=== PATIENT | female | born 1975 | race African-American/Black ===

== ENCOUNTER 2019-06-10 20:59 | Inpatient (IN) | payer OTHER ==
[2019-06-10 22:04] VITALS: BMI 33.7
[2019-06-10] MEDS ORDERED: Ondansetron ODT 4 MG TAB PO PRN (22:30)
[2019-06-10] MEDS ORDERED: Calcium Carbonate 500 MG ChewTAB PO PRN (22:30)
[2019-06-10 23:39] LABS: Phosphorus 2.2 mg/dL (2.3-4.7)
[2019-06-10 23:47] LABS: ALT (SGPT) 29 U/L (8-55); AST (SGOT) 43 U/L (5-34); Albumin 3.3 g/dL (3.5-5.0); Alkaline Phosphatase 162 U/L (40-110); Anion Gap 12 mmol/L (10-20); BUN (Urea Nitrogen) Less than 4 mg/dL (7.0-18.7); Bilirubin, Total 0.5 mg/dL (0.2-1.2); Calc. Creatinine Clearance 126 mL/min (70-130); Calcium 9.2 mg/dL (7.8-10.44); Carbon Dioxide 25 mmol/L (22-29); Chloride 105 mmol/L (98-107); Estimated GFR-MDRD Greater than 90; Globulin 3.8 g/dL (2.4-3.5); Glucose 85 mg/dL (70-105); Magnesium 1.5 mg/dL (1.6-2.6); Potassium 3.6 mmol/L (3.5-5.1); Protein, Total 7.1 g/dL (6.0-8.3); Sodium 138 mmol/L (136-145)
[2019-06-10 23:53] LABS: Band 2 % (5-11); Eosinophils 2 % (0-10); Hemoglobin 9.9 g/dL (12.0-16.0); Lymphocytes 15 % (21-51); MDiff Complete? YES; Mean Corpuscular HGB CONC 34.2 g/dL (32.0-36.0); Mean Corpuscular Hemoglobin 29.1 pg (27.0-31.0); Mean Corpuscular Volume 85.1 fL (78.0-98.0); Mean Platelet Volume 7.8 fL (7.4-10.4); Monocytes 3 % (0-10); Neutrophil 77 % (42-75); Platelet Count 382 thou/uL (130-400); RBC Distribution Width 19.9 % (11.5-14.5); Red Blood Cell (RBC) Count 3.39 mill/uL (4.20-5.40); White Blood Cell (WBC) Count 10.3 thou/uL (4.8-10.8)
[2019-06-11] MEDS: Melatonin 3 MG TAB PO PRN ×2 (00:26→20:30)
[2019-06-11] MEDS ORDERED: Dexamethasone 1 MG TAB PO SCH (00:45)
--- NOTE | 2019-06-11 01:06 | PDOC.FPRHP ---
- History of Present Illness Chief Complaint: Hypertensive Urgency History of Present Illness: 44yo AAF with h/o Anxiety/Depression, HTN, Sickle cell trait who presented as direct admit for HTN urgency. Pt was recently admitted to [facility] for sepsis 2/2 UTI and discharged today. Pt then called her PCP and was found to have BP of 203/123 and complaining of ANDERSON and thus admitted for HTN urgency and workup of secondary HTN. PT states she has had elevated BP for about the past 9 months, uncontrolled with multiple BP medications. Pt states that her BP gets as low as 140s and then as high as 170s. When BP is elevated she has associated ANDERSON's. She also endorses chronic anxiety, tremors, and blurred vision. She also has had nausea and vomiting for past 3 days with any PO intake. Also states she has had low potassium over past few months. She has seen Dr. Og twice for elevated BP and started on Potassium 20meq daily. She also endorses 48lb weight gain for past 1 year, without significant diet changes. ALso endorses new 2-3cm hyperpigmented lesions on body, nonpuritic. PCP: Mau ED Course: Direct Admit - Allergies/Adverse Reactions Allergies Allergy/AdvReac Type Severity Reaction Status Date / Time citalopram [From Celexa] Allergy Verified 06/10/19 22:01 codeine Allergy Verified 06/10/19 22:01 Iodine and Iodide Containing Allergy Verified 06/10/19 22:01 Produc Penicillins Allergy Verified 06/10/19 22:01 - Home Medications Medication Instructions Recorded Confirmed Type Amlodipine [Norvasc] 10 mg PO DAILY 06/11/19 06/11/19 History Cephalexin [Keflex] 500 mg PO Q12H 06/11/19 06/11/19 History Ferrous Sulfate [Feosol] 325 mg PO DAILY 06/11/19 06/11/19 History Hydrochlorothiazide 25 mg PO QAM 06/11/19 06/11/19 History Losartan Potassium 100 mg PO DAILY 06/11/19 06/11/19 History Metoclopramide HCl [Reglan] 5 mg PO QID 06/11/19 06/11/19 History Pantoprazole [Protonix] 40 mg PO DAILY 06/11/19 06/11/19 History Sertraline HCl [Zoloft] 100 mg PO DAILY 06/11/19 06/11/19 History Sucralfate [Carafate] 1 gm PO QID 06/11/19 06/11/19 History buPROPion HCl [Wellbutrin XL] 300 mg PO QAM 06/11/19 06/11/19 History cloNIDine [Catapres] 0.2 mg PO QID PRN 06/11/19 06/11/19 History hydrALAZINE HCl [Hydralazine HCl] 25 mg PO TID 06/11/19 06/11/19 History traZODone HCl [Trazodone HCl] 100 mg PO HS 06/11/19 06/11/19 History - History PMHx:Anxiety, depression, HTN, Anemia, Sickle cell trait, gallstones PSHx: C/s x3, unilateral salpingoophorectomy for ectopic, tubal ligation FHx: Dad and mom with HTN. Dad with ESRD 2/2 HTN, Mom breast cancer, aunt with hypothyroidism, mom with ESRD 2/2 HTN. No known family history of GI malignancies, thyroid malagnancies. Social: Lives at home with 3 children. Former 26PY smoker, quit 3 weeks ago. Social drinker. No illicits. - Review of Systems General: reports: weight/appetite/sleep changes (48lb weight gain over past year ). denies: fever/chills, night sweats, fatigue Eyes: reports: vision changes (chronic blurred vision) ENT: denies: nasal congestion, rhinorrhea Respiratory: denies: cough, congestion, shortness of breath Cardiovascular: denies: chest pain, palpitation, edema Gastrointestinal: reports: nausea, vomiting. denies: diarrhea, constipation, abdominal pain Genitourinary: denies: incontinence, dysuria, polyuria Skin: reports: rashes (per HPI) Neurological: reports: other (resting tremor) Psychological: reports: anxiety - Vital signs BP: 145/99 HR: 110 RR: 16 Tmax: 98 Pox: 98.3% on RA Wt: 83kg - Physical Exam Constitutional: NAD, awake, alert and oriented, well developed HEENT: PERRLA, EOMI, no scleral icterus, grossly normal vision, grossly normal hearing, MMM, oropharynx clear Neck: supple, trachea midline, no LAD Heart: RRR, normal S1/S2, no murmurs/rubs/gallops, pulses present, no edema Lungs: CTAB, no respiratory distress, good air movement, no rales/rhonchi, no wheezing Abdomen: soft, non-tender, bowel sounds present, no masses/distention Neurological: no focal deficit, normal sensation, other (resting tremor) Skin: other (2-3cm hyperpigmented lesions on upper and lower ext, mild scaly, no erythema, non TTP) Heme/Lymphatic: no unusual bruising or bleeding Psychiatric: normal mood and affect, good judgment and insight, other (anxious) FMR H&P: Results - Labs Result Diagrams: 06/11/19 04:56 06/11/19 04:56 Lab results: WBC 10.3 thou/uL (4.8-10.8) 06/10/19 23:09 Hgb 9.9 g/dL (12.0-16.0) L 06/10/19 23:09 Hct 28.9 % (36.0-47.0) L 06/10/19 23:09 MCV 85.1 fL (78.0-98.0) 06/10/19 23:09 Plt Count 382 thou/uL (130-400) 06/10/19 23:09 Band Neuts % (Manual) 2 % (5-11) L 06/10/19 23:09 Sodium 138 mmol/L (136-145) 06/10/19 23:09 Potassium 3.6 mmol/L (3.5-5.1) 06/10/19 23:09 Chloride 105 mmol/L (98-107) 06/10/19 23:09 Carbon Dioxide 25 mmol/L (22-29) 06/10/19 23:09 BUN Less than 4 mg/dL (7.0-18.7) L 06/10/19 23:09 Creatinine 0.77 mg/dL (0.6-1.1) 06/10/19 23:09 Glucose 85 mg/dL (70-105) 06/10/19 23:09 Calcium 9.2 mg/dL (7.8-10.44) 06/10/19 23:09 Total Bilirubin 0.5 mg/dL (0.2-1.2) 06/10/19 23:09 AST 43 U/L (5-34) H 06/10/19 23:09 ALT 29 U/L (8-55) 06/10/19 23:09 Alkaline Phosphatase 162 U/L (40-110) H 06/10/19 23:09 Serum Total Protein 7.1 g/dL (6.0-8.3) 06/10/19 23:09 Albumin 3.3 g/dL (3.5-5.0) L 06/10/19 23:09 - Radiology Interpretation CT scan - abdomen Status: image reviewed by me (The official read was not with the scan on the disc. There appeared to be some sort of mass in the L. kidney. No other abnormalities noted. will try and obtain official reports) Additional comment: CT scan from [facility] stay. US - abdomen Status: image reviewed by me, report reviewed by me (Pt had disc of US from [facility]. It showed gallstones but no wall thickening no inflammation) Additional comment: US scan form [facility]. On CD. Was reviewed. FMR H&P: A/P - Problem List (1) Hypertensive urgency Current Visit: Yes Status: Acute Code(s): I16.0 - HYPERTENSIVE URGENCY (2) Anxiety Current Visit: Yes Status: Acute Code(s): F41.9 - ANXIETY DISORDER, UNSPECIFIED (3) Anemia Current Visit: Yes Status: Acute Code(s): D64.9 - ANEMIA, UNSPECIFIED - Plan 44yo AAF with h/o Anxiety/Depression, HTN, Sickle cell trait who presented as direct admit for HTN urgency and resistant HTN. #HTN Urgency - SBP 203 prior to arrival with associated ANDERSON. No severe elevated BP since arrival - H/o resistant per PCP, history of 1 year of weight gain, has present tremor, having issues of hypokalemia and been having HTN despite multiple BP meds - Concern for Cushings - will order dexamethasone suppresion test with AM cortisol and 24hr Urine cortisol - Concern for Pheo - will obtain plasma metanephrines and catecholamines and 24hr Urine meta/catech - Concern for Primary Hyperaldosteronism - will obtain AM Renin/Aldosterone - Will monitor BP closely - Recently on Adderall 30mg BID, but has been off for past 3 weeks - On Clonidine QID prn, could contribute to rebound HTN, will hold and recommend d/c - Will hold ARB and HCTZ as well as SSRI and Wellbutrin as can affect workup labs for secondary htn - Will continue Norvasc and hydralazine - CT abdomen reviewed from [facility], mass on left kidney, will provide to our radiologist for overreed - Renal US with Doppler to assess for renal artery stenosis - Check CBC and TSH - will obtain BP on both arms and orthostatics to eval for coarctation #Anxiety/Depression - Will hold SSRI, Trazadone, and Wellbutrin at this time as can affect secondary HTN labs, will restart after workup complete - could be 2/2 underlying pathology such as Pheo #Gallstones - Recently found on Abd US at [facility] - will obtain CMP - will monitor, no s/s of acute cholecystis - will need OP f/u #Sickle Cell trait and Anemia - will check CBC PCP: Mau VTE: None, low risk Diet: HH Low sodium IVF: SL Code: Full Disposition/LOS: Admit to medical obs for HTN urgency. Secondary HTN workup. Anticipate hospitalization <48 hours. FMR H&P: Upper Level - Pertinent history I was present with the commercial intern during the HPI. I agree with the above HPI. I made edits as needed above. - Pertinent findings Pt resting in bed. Pt appears to be in no acute distress. Pt pulse tachy. BP mildly elevated. HEENT: Pt has somewhat do facies appearing. No buffalo hump noted. Has hyperpigmented spots on all extremities. Ext: When pt held arms out straight noted to have tremor. Pt reported to be due to her anxiety. Abdomen: Pelaez sign positive on palpation of RUQ area. Some rebound noted - Plan Date/Time: 06/11/19 0041 I, Joby Weir, PGY3, have evaluated this patient and agree with findings/ plan as outlined by commercial intern resident. Pertinent changes/additions are listed here. See above for detailed plan. I made edits as needed. At this time pt admitted for HTN urgency with headaches. No sign of organ dysfunction. Concern for secondary HTN. Pt has multiple symptoms, hypokalemia and findings on physical exam that concern us possible underlying 2/2 htn. Will evaluate for hyperaldosteronism, pheochromocytoma, carmita's, and renal artery stenosis. See above for detailed workup plan. Addendum - Attending - Attending Attestation Date/Time: 06/10/19 6511 I personally evaluated the patient and discussed the management with Dr. Reyna. I agree with the History, Examination, Assessment and Plan documented above with any addition or exceptions noted below. The patient was admitted for hypertensive urgency. BP has been fluctuating, tachycardia has also been fluctuating. Will perform workup of secondary causes.
[2019-06-11 01:10] LABS: Bacteria/HPF None Seen HPF (None Seen); Bilirubin Negative (Negative); Blood, Urine Negative (Negative); Clarity Clear (Clear); Glucose, Urine (Dipstick) Normal (Negative); Leukocyte Negative Leu/uL (Negative); Nitrite Negative (Negative); Protein, Urine (Dipstick) Negative (Neg-Trace); RBC/HPF 0-3 HPF (0-3); Squamous Epithelial 0-3 HPF (0-3); Urobilinogen Normal mg/dL (Less than 2); WBC/HPF 0-3 HPF (0-3)
[2019-06-11 05:57] LABS: ALT (SGPT) 26 U/L (8-55); AST (SGOT) 39 U/L (5-34); Albumin 3.1 g/dL (3.5-5.0); Alkaline Phosphatase 151 U/L (40-110); Anion Gap 11 mmol/L (10-20); BUN (Urea Nitrogen) Less than 4 mg/dL (7.0-18.7); Bilirubin, Total 0.6 mg/dL (0.2-1.2); Calc. Creatinine Clearance 138 mL/min (70-130); Calcium 9.2 mg/dL (7.8-10.44); Carbon Dioxide 25 mmol/L (22-29); Chloride 105 mmol/L (98-107); Estimated GFR-MDRD Greater than 90; Globulin 3.7 g/dL (2.4-3.5); Glucose 86 mg/dL (70-105); Potassium 3.6 mmol/L (3.5-5.1); Protein, Total 6.8 g/dL (6.0-8.3); Sodium 137 mmol/L (136-145)
[2019-06-11 06:44] LABS: Anisocytosis SLIGHT = 6-15 cells (100X) (0-5/hpf); Band 1 % (5-11); Hemoglobin 9.6 g/dL (12.0-16.0); Lymphocytes 14 % (21-51); MDiff Complete? YES; Mean Corpuscular HGB CONC 34.3 g/dL (32.0-36.0); Mean Corpuscular Hemoglobin 29.1 pg (27.0-31.0); Mean Corpuscular Volume 84.8 fL (78.0-98.0); Mean Platelet Volume 7.8 fL (7.4-10.4); Monocytes 4 % (0-10); Neutrophil 81 % (42-75); Platelet Count 370 thou/uL (130-400); RBC Distribution Width 19.7 % (11.5-14.5); Red Blood Cell (RBC) Count 3.29 mill/uL (4.20-5.40); Target Cells SLIGHT = 2-5 cells (100X) (0-1/hpf); White Blood Cell (WBC) Count 12.5 thou/uL (4.8-10.8)
[2019-06-11] MEDS ORDERED: FLU VACC QS2019-20(6MOS UP)/PF 60 MCG/0.5 ML SYRINGE IM ONE (09:00)
[2019-06-11] MEDS: Ferrous Sulfate 325 MG TAB PO SCH (09:13)
[2019-06-11] MEDS: Amlodipine 10 MG TAB PO SCH (09:14)
[2019-06-11] MEDS: Cephalexin 250 MG CAP PO SCH ×2 (09:14→20:29)
[2019-06-11] MEDS: hydrALAZINE 25 MG TAB PO SCH ×3 (09:14→20:29)
--- NOTE | 2019-06-11 09:14 | PDOC.FM ---
- Subjective Subjective: NADEEM overnight. Pt doingwell. No headche, cp,sob. - Objective Vital Signs & Weight: Vital Signs (12 hours) Temp Pulse Resp BP BP BP BP 06/11/19 04:17 98.1 F 105 H 16 06/11/19 00:21 98.0 F 87 16 146/98 H 06/10/19 22:30 153/103 H 154/102 H 150/99 H 06/10/19 21:30 98.3 F 110 H 16 145/99 H BP Pulse Ox 06/11/19 04:17 147/92 H 98 06/11/19 00:21 98 06/10/19 22:30 139/104 H 06/10/19 21:30 98 Weight Weight 83.716 kg I&O: 06/10/19 06/11/19 06/12/19 06:59 06:59 06:59 Intake Total 200 Output Total 700 Balance -500 Result Diagrams: 06/11/19 04:56 06/11/19 04:56 Phys Exam - Physical Examination Constitutional: NAD HEENT: moist MMs, sclera anicteric Neck: no nodes Respiratory: no wheezing, no rales, no rhonchi Cardiovascular: RRR, no significant murmur, no rub Gastrointestinal: soft, no distention Musculoskeletal: no edema, pulses present Neurological: non-focal, moves all 4 limbs Psychiatric: normal affect Skin: no rash Dx/Plan (1) Anemia Code(s): D64.9 - ANEMIA, UNSPECIFIED Status: Acute (2) Anxiety Code(s): F41.9 - ANXIETY DISORDER, UNSPECIFIED Status: Acute (3) Hypertensive urgency Code(s): I16.0 - HYPERTENSIVE URGENCY Status: Acute - Plan Plan: #HTN Urgency - labs wnl and 2ndary htn studies pending - if BP remains stable salomón curran for dc to home tomorrow after collection of labs complete. #Anxiety/Depression - resume medications after lab studies complete #Sickle Cell trait and Anemia - CBC stable, asymptomatic PCP: Mau VTE: None, low risk Diet: HH Low sodium IVF: SL Code: Full Disposition/LOS: Stable, cont secondary htn workup. DC after labs collected. Addendum - Attending - Attending Attestation Date/Time: 06/11/191817 I personally evaluated the patient and discussed the management with Dr. Gonzales. I agree with the History, Examination, Assessment and Plan documented above with any addition or exceptions noted below. The patient is feeling ok. Her bp this morning is improved. Getting 24 hour urine. Cortisol level pending.
--- NOTE | 2019-06-11 10:00 | ULT ---
EXAM: US Renal Bilateral with Doppler PROVIDED CLINICAL HISTORY: Hypertension COMPARISON: CT 05/02/2019 FINDINGS: Right kidney measures about 11.8 x 4.9 x 4.8 cm and demonstrates no evidence for hydronephrosis or so lid mass. Simple appearing cysts are seen. Left kidney measures about 11.6 x 6 x 5.3 cm and demonstrates no evidence for hydronephrosis. The son ographer questions a solid mass within the left kidney, however no evidence for such was seen on the recent CT examination. Urinary bladder is decompressed and not well evaluated. Color Doppler and spectral analysis of the aortic and renal waveforms was performed. Renal artery to aorta peak systolic velocity ratio is 0.81 on the right and 0.66 on the left. Resistive indices within the arcuate systems are normal bilaterally. IMPRESSION: 1. No evidence for hydronephrosis. 2. No sonographic evidence for a hemodynamically significant renal artery stenosis.
[2019-06-11] MEDS: Ondansetron PF 4 MG/2 ML Vial IVP PRN ×2 (12:27→18:07)
[2019-06-11] MEDS: Acetaminophen 325 MG TAB PO PRN (20:29)
[2019-06-12] MEDS ORDERED: traZODone HCl 50 MG TAB PO SCH ×2 (01:00→21:00)
--- NOTE | 2019-06-12 07:40 | PDOC.FM ---
- Subjective Subjective: Pt reports feeling better, no ANDERSON since yesterday. She does report some intermittent post prandial nausea and vomiting x4 days. Nurse reports two episodes of vomiting yesterday. Pt reports she is only symptomatic after eating a large meal. Small meals tolerated well. - Objective Vital Signs & Weight: Vital Signs (12 hours) Temp Pulse Resp BP BP Pulse Ox 06/12/19 04:02 97.9 F 110 H 18 153/99 H 98 06/12/19 00:00 98.0 F 106 H 16 134/87 98 06/11/19 20:29 110 H 167/105 H Weight Admit Weight 83.461 kg Weight 83.716 kg I&O: 06/11/19 06/12/19 06/13/19 06:59 06:59 06:59 Intake Total 200 879 Output Total 700 1200 Balance -500 -321 Result Diagrams: 06/11/19 04:56 06/11/19 04:56 Phys Exam - Physical Examination Constitutional: NAD HEENT: moist MMs, sclera anicteric Neck: supple, full ROM Respiratory: no wheezing, clear to auscultation bilateral Cardiovascular: RRR, no significant murmur Gastrointestinal: soft, positive bowel sounds Musculoskeletal: no edema, pulses present Neurological: normal sensation, moves all 4 limbs Psychiatric: normal affect, A&O x 3 Skin: no rash, normal turgor Dx/Plan (1) Hypertensive urgency Code(s): I16.0 - HYPERTENSIVE URGENCY Status: Acute (2) Anemia Code(s): D64.9 - ANEMIA, UNSPECIFIED Status: Acute (3) Anxiety Code(s): F41.9 - ANXIETY DISORDER, UNSPECIFIED Status: Acute - Plan Plan: HTN Urgency A- labs wnl so far. Many studies still pending P- Continue amlodipine -dc to home today likely Gall stones A- seen on recent US. Pt is mildy symptomatic with nausea with large meals. Otherwise no s/s of cholecystitis P- f/u outpt -zofran prn Anxiety/Depression - resume medications on DC Sickle Cell trait and Anemia - CBC stable, asymptomatic PCP: Mau VTE: None, low risk Diet: HH Low sodium IVF: SL Code: Full Disposition/LOS: likely DC today Addendum - Attending - Attending Attestation Date/Time: 06/12/19 2100 I personally evaluated the patient and discussed the management with Dr. Cheema. I agree with the History, Examination, Assessment and Plan documented above with any addition or exceptions noted below. The patient is stable. BP is elevated but overall better than initial. She has completed 24 hour urine and results are pending and can take up to a week to result. Pt notes eating small amounts controls her nausea. No abdominal tenderness noted this morning. Pt wants to go home. Dr. Cheema will update pcp.
[2019-06-12] MEDS: Cephalexin 250 MG CAP PO SCH (08:51)
[2019-06-12] MEDS: Amlodipine 10 MG TAB PO SCH (08:54)
[2019-06-12] MEDS: Ferrous Sulfate 325 MG TAB PO SCH (08:55)
[2019-06-12] MEDS: hydrALAZINE 25 MG TAB PO SCH ×2 (08:55→14:44)
[2019-06-12] MEDS ORDERED: Fluconazole 100 MG TAB PO SCH (09:00)
--- NOTE | 2019-06-12 10:40 | DIS ---
DATE OF ADMISSION: 06/10/2019 DATE OF DISCHARGE: 06/12/2019 ADMITTING ATTENDING: Corinne Toledo MD DISCHARGE ATTENDING: Corinne Toledo MD RESIDENT: Ruddy Cheema MD CONSULTS: None. DISCHARGE MEDICATIONS: 1. Clonidine 0.2 mg p.o. q.i.d. p.r.n. for systolic blood pressure over 180. 2. Wellbutrin 300 mg p.o. q.a.m. 3. Sertraline 100 mg p.o. daily. 4. Ferrous sulfate 325 mg p.o. daily. 5. Protonix 40 mg p.o. daily. 6. Reglan 5 mg p.o. q.i.d. 7. Keflex 500 mg p.o. q.12 hours. Complete antibiotic course resumed at home. 8. Trazodone 100 mg p.o. at bedtime. 9. Zofran 4 mg p.o. q.6 hours p.r.n. 10. Amlodipine 10 mg p.o. daily. 11. Hydralazine 25 mg p.o. t.i.d. DISCONTINUED MEDICATIONS: 1. Hydrochlorothiazide 25 mg p.o. q.a.m. 2. Losartan 100 mg p.o. daily. IMAGING REPORTS: Renal ultrasound on 06/11/2019. Impression; no evidence for hydronephrosis. No sonographic evidence for hemodynamically significant renal artery stenosis. PRIMARY DIAGNOSIS: Hypertensive urgency. SECONDARY DIAGNOSES: Hypertension, gallstones, depression, sickle cell trait, and anemia. HISTORY OF PRESENT ILLNESS/HOSPITAL COURSE: This is a 44-year-old female, who is transferred from [facility] for further workup of her hypertensive urgency. The patient was placed on 10 mg of amlodipine in addition to her home dosage of hydralazine and blood pressures responded well. Workup of her hypertensive urgency and resistant hypertension was initiated in hospital stay including renal ultrasound and vast laboratory workup including cortisol, dexamethasone suppression test, urine cortisol, plasma metanephrines, urine metanephrines, morning renin and aldosterone, and these labs will be followed up at a later date. Otherwise, the patient's hospitalization was somewhat significant for nausea. It was found that the patient had history of gallstones. She did not have positive Pelaez sign and was not febrile, and so the patient did not show signs of cholecystitis. Nausea was relieved by eating small meals and taking Zofran as needed, and so the patient was discharged home to follow up with PCP. DISPOSITION: Stable. DISCHARGE INSTRUCTIONS: 1. Location: Home. 2. Activity: As tolerated. 3. Diet: Low-salt, heart-healthy diet. 4. Followup: Follow up with Dr. León in 3 days. Job ID: [id number]
[2019-06-12 13:13] VITALS: TEMP 98.1
[2019-06-12] MEDS: Acetaminophen 325 MG TAB PO PRN (13:19)
[2019-06-12 14:45] VITALS: BP 140/99
[2019-06-12] MEDS ORDERED: Lisinopril 5 MG TAB PO SCH (14:45)
[2019-06-13] MEDS ORDERED: Lisinopril 5 MG TAB PO SCH (09:00)
--- NOTE | 2019-06-13 16:50 | EKG ---
Test Reason : Blood Pressure : / mmHG Vent. Rate : 109 BPM Atrial Rate : 109 BPM P-R Int : 138 ms QRS Dur : 090 ms QT Int : 384 ms P-R-T Axes : 080 073 -03 degrees QTc Int : 517 ms Sinus tachycardia Right atrial enlargement Cannot rule out Inferior infarct , age undetermined Nonspecific ST-T changes Abnormal ECG No previous ECGs available Confirmed by DR. Petrona BLEVINS ([id number]) on 06/13/2019 4:49:49 PM Referred By: SANDRA Confirmed By:DR. Petrona BLEVINS
[2019-06-14 18:08] LABS: Renin Activity 0.196 ng/mL/hr (0.167-5.380)
[2019-06-15 09:11] LABS: Dopamine 63 pg/mL (0-48); Epinephrine Less than 15 pg/mL (0-62); Norepinephrine 848 pg/mL (0-874)
[2019-06-15 11:11] LABS: Metanephrine,Ur 67 ug/L (Undefined); Metanephrines Total-24H 87 ug/24 hr (45-290); Normetanephrine,Ur 428 ug/L (Undefined); Normetanephrines-24H U 556 ug/24 hr (82-500)
[2019-06-15 17:09] LABS: Metanephrine,Plasma 14 pg/mL (0-62); Normetanephrine,Pl 214 pg/mL (0-145)
== END 2019-06-12 14:46 | disposition home or self-care (01) | DRG 305 ==
LOC: T4-B 20:59
PROVIDERS: ADMIT Family Medicine; ATTEND Family Medicine
DX: I16.0 Hypertensive urgency (principal); I10 Essential (primary) hypertension; F32.9 Major depressive disorder, single episode, unspecified; F41.9 Anxiety disorder, unspecified; D64.9 Anemia, unspecified; D57.1 Sickle-cell disease without crisis; K80.80 Other cholelithiasis without obstruction; E87.6 Hypokalemia; D57.3 Sickle-cell trait
CPT/HCPCS: 36415; 76770; 80053; 81001; 82088; 82384; 82530; 82533; 83735; 83835; 84100; 84244; 84443; 85007; 85027; 90471; 90686; 93005; 93010; 93975; G0008; J2405; J8540; Q0162